=== PATIENT | male | born 1945 | race Caucasian/White ===

== ENCOUNTER 2017-12-05 19:10 | Emergency (ER) | payer OTHER ==
--- NOTE | 2017-12-05 19:16 | PDOC ---
History of Present Illness - General Exam Limitations: No Limitations - History of Present Illness Initial Comments: 12/05/17 19:25 The patient is a 71 year old male, with a significant past medical history of hypertension, who presents to the emergency department s/p allergic reaction beginning approx. 30 minutes ago. The patient states he feels as though his tongue is swelling. He reports taking two 25 mg Benadryl tablets at approx. 6 pm and 6:30 pm with mild relief. The patient reports he has been taking his Ramipril medication for many years without previous reactions. He denies any recent fevers, chills, headache or dizziness. He denies any recent nausea, vomit, diarrhea or constipation. He denies any recent chest pain or shortness of breath. He denies any recent dysuria, frequency, urgency or hematuria. <Rolan Silva - Last Filed: 12/05/17 20:40> - General History Source: Patient <Jhonny Pulido - Last Filed: 12/05/17 23:11> - General Stated Complaint: ALLERGIC REACTION Time Seen by Provider: 12/05/17 19:15 Past History <Rolan Silva - Last Filed: 12/05/17 20:40> <Jhonny Pulido - Last Filed: 12/05/17 23:11> - Past Medical History Allergies/Adverse Reactions: Allergies Allergy/AdvReac Type Severity Reaction Status Date / Time No Known Allergies Allergy Verified 12/05/17 19:32 Home Medications: Ambulatory Orders Aspirin 81 mg PO DAILY 12/05/17 Esomeprazole Magnesium [Nexium 24Hr] 40 mg PO PRN PRN 12/05/17 Methylprednisolone [Medrol Dose Isidro] 4 mg PO ASDIR #21 tablet 12/05/17 Metoprolol Succinate [Toprol Xl -] 150 mg PO DAILY 12/05/17 Ramipril [Altace] 5 mg PO DAILY 12/05/17 Review of Systems - Review of Systems Comments:: 12/05/17 19:26 CONSTITUTIONAL: Absent: fever, no chills, no fatigue EYES: Absent: visual changes ENT: Present: (+) Tongue swelling Absent: ear pain, no sore throat CARDIOVASCULAR: Absent: chest pain, no palpitations RESPIRATORY: Absent: cough, no SOB GI: Absent: abdominal pain, no nausea, no vomiting, no constipation, no diarrhea GENITOURINARY: Absent: dysuria, no frequency, no hematuria MUSKULOSKELETAL: Absent: back pain, no arthralgia, no myalgia SKIN: Absent: rash NEURO: Absent: headache <Rolan Silva - Last Filed: 12/05/17 20:40> *Physical Exam - Physical Exam Comments: 12/05/17 19:28 GENERAL: Well-appearing, well-nourished. No apparent distress. HEENT: No drooling. Normocephalic, atraumatic. PERRL, EOM intact. CARDIOVASCULAR: Normal S1, S2. Regular rate and rhythm. PULMONARY: Clear to auscultation bilaterally. No stridor. ABDOMEN: Soft, non-distended, non-tender. EXTREMITIES: Normal ROM in all four extremities. No gross deformities. SKIN: Warm, dry. No rash NEUROLOGICAL: No focal neurological deficits. <Rolan Silva - Last Filed: 12/05/17 20:40> ED Treatment Course - LABORATORY CBC & Chemistry Diagram: 12/05/17 19:20 12/05/17 19:20 - RADIOLOGY Radiograph Interpretation: 12/05/17 20:40 EXAM#: TYPE/EXAM: RESULT: [id number] RAD/CHEST X-RAY PORTABLE* HISTORY PROVIDED: Rule out infiltrate. A single frontal portable projection of the chest at 1:45 PM is submitted. The heart size is within normal limits. Median sternotomy sutures and mediastinal surgical clips are present. No acute infiltrates or pleural effusions are identified. There is tortuosity and calcification of the thoracic aorta and degenerative arthritis of the thoracic spine. IMPRESSION: No acute pathology Reported By: Jose Omer MD <Rolan Silva - Last Filed: 12/05/17 20:40> - LABORATORY CBC & Chemistry Diagram: 12/05/17 19:20 12/05/17 19:20 <Jhonny Pulido - Last Filed: 12/05/17 23:11> Medical Decision Making - Medical Decision Making 12/05/17 23:09 Dr. Pulido: The scribe's documentation has been prepared under my direction and personally reviewed by me in its entirery. I confirm that the note above accurately reflects all work, treatment, procedures, and medical decision making performed by me. Pt feels better after treatment. Pt will be discharge and prescribed Medrol dose isidro to be take as directed. Advised to continue with Benadryl <Jhonny Pulido - Last Filed: 12/05/17 23:11> *DC/Admit/Observation/Transfer - Attestations Scribe Attestion: 12/05/17 19:27 Documentation prepared by Rolan Silva, acting as certified medical aide for Jhonny Pulido MD. <Rolan Silva - Last Filed: 12/05/17 20:40> - Discharge Dispostion Admit: No <Jhonny Pulido - Last Filed: 12/05/17 23:11> Diagnosis at time of Disposition: Allergic reaction caused by a drug Qualifiers: Encounter type: initial encounter Qualified Code(s): T78.40XA - Allergy, unspecified, initial encounter - Discharge Dispostion Disposition: HOME Condition at time of disposition: Stable - Prescriptions Prescriptions: Methylprednisolone [Medrol Dose Isidro] 4 mg PO ASDIR #21 tablet - Referrals Referrals: ON STAFF,NOT [Primary Care Provider] - Claude Lo MD [Staff Physician] - - Patient Instructions Printed Discharge Instructions: DI for Adverse Drug Reaction -- Allergic Additional Instructions: Please follow up with your doctor by tomorrow so you can discuss a new blood pressure medication. Take Medrol Dose Isidro as directed. Return if any problems. Continue taking Benadryl every 6 hours.
[2017-12-05] MEDS ORDERED: methylPREDNISolone NA SUCC 125 MG/2 ML VIAL IVPB ONE (19:17)
[2017-12-05] MEDS ORDERED: FAMOTIDINE 20 MG/50 ML IVPB 20 MG in PREMIX 50 IVPB ONE (19:17)
[2017-12-05] MEDS ORDERED: FAMOTIDINE 20 MG/50 ML IVPB 20 MG/50 ML MG IVPB ONE ×3 (19:18→20:22)
[2017-12-05 19:33] LABS: BASO % 0.8 % (0-2.0); HEMATOCRIT 37.7 % (35.4-49); HEMOGLOBIN 12.7 GM/dL (11.7-16.9); LYMPH % 30.6 % (8-40); MCH 32.9 pg (25.7-33.7); MCHC 33.7 g/dl (32.0-35.9); MEAN CELL VOLUME 97.7 fl (80-96); MEAN PLT VOLUME 7.6 fl (7.5-11.1); MONO % 6.7 % (3.8-10.2); NEUT % 58.9 % (42.8-82.8); PLATELET COUNT 207 K/MM3 (134-434); RBC 3.86 M/mm3 (4.00-5.60); RDW 13.6 % (11.9-15.9); WHITE BLOOD COUNT 10.7 K/mm3 (4.0-10.0)
[2017-12-05 19:41] VITALS: TEMP 98; BMI 27.3
[2017-12-05 19:45] LABS: INR 1.17 (0.82-1.09); PROTHROMBIN TIME (PATIENT) 13.2 SEC (9.98-11.88)
[2017-12-05 20:06] LABS: ALBUMIN 3.9 g/dl (3.4-5.0); ANION GAP 8 (8-16); BILIRUBIN,TOTAL 0.4 mg/dL (0.2-1.0); BLOOD UREA NITROGEN 19 mg/dL (7-18); CALCIUM 8.1 mg/dL (8.5-10.1); CHLORIDE 107 mmol/L (98-107); CO2 24 mmol/L (21-32); CREATININE 1.7 mg/dL (0.7-1.3); GLUCOSE,RANDOM 105 mg/dL (74-106); MAGNESIUM 1.9 mg/dL (1.8-2.4); POTASSIUM 3.8 mmol/L (3.5-5.1); SGOT/AST 26 U/L (15-37); SGPT/ALT 31 U/L (12-78); SODIUM 139 mmol/L (136-145); TOT PROT 6.9 g/dl (6.4-8.2)
[2017-12-05 20:09] LABS: ALK PHOS 109 U/L (45-117)
[2017-12-05 20:28] VITALS: BP 159/78; PULSE 69
--- NOTE | 2017-12-06 10:34 | EKG ---
Test Reason : Blood Pressure : / mmHG Vent. Rate : 074 BPM Atrial Rate : 074 BPM P-R Int : 170 ms QRS Dur : 120 ms QT Int : 394 ms P-R-T Axes : 015 -35 082 degrees QTc Int : 437 ms NORMAL SINUS RHYTHM LEFT AXIS DEVIATION LEFT VENTRICULAR HYPERTROPHY WITH QRS WIDENING AND REPOLARIZATION ABNORMALITY CANNOT RULE OUT SEPTAL INFARCT , AGE UNDETERMINED ABNORMAL ECG NO PREVIOUS ECGS AVAILABLE Confirmed by GRAEME ROMO, GISEL ([id number]) on 12/06/2017 10:33:58 AM Referred By: Confirmed By:GISEL BEDOLLA MD
== END 2017-12-05 23:10 | disposition home or self-care (01) ==
LOC: JER 19:10
PROC: 3E033GC Introduction of Other Therapeutic Substance into Peripheral Vein, Percutaneous Approach (ICD-10-PCS; principal; 2017-12-05)
DX: T78.40XA Allergy, unspecified, initial encounter (principal)
CPT/HCPCS: 36415; 71045-TC-FY; 80053; 82550; 82553; 83735; 84484; 85025; 85610; 93005; 93010; 96365; 96367; 96375; 99282-25